=== PATIENT | female | born 1955 | race Caucasian/White ===

== ENCOUNTER 2018-04-25 11:56 | Emergency (ER) | payer BC ==
--- OUTSIDE RECORDS SUMMARY | 2018-04-25 12:08 | XMS REPORT | Continuity of Care Document ---
:1955 External Reference #:[id number] Author Name Ananya Zee O.D. Address [address] [place] [address] Care Team Providers Name Role Phone Naian Ross M.D. Primary Care Physician Unavailable Payers Type Date Identification Numbers Payment Provider Subscriber Policy Number: [id number] [facility] Mei Barone PayID: [id number] [address] [address] [place] [address] Advance Directives Description No Information Available Problems Date Description Provider Status Onset: Seasonal allergy Active Onset: Allergy to cat dander Active Onset: 04/12/2015 Vitreous degeneration Ananya Zee O.D. Active Onset: 04/12/2015 Presbyopia Ananya Zee O.D. Active Onset: 04/12/2015 Myopia Ananya Zee O.D. Active Onset: Chronic back pain Active Note: (fell while mowing lawn, landed on tail bone 09/03/2016) Onset: 04/12/2017 Regular astigmatism Ananya Zee O.D. Active Onset: 04/16/2018 Nuclear senile cataract Ananya Zee O.D. 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 Work Status Full-Time Employment ETOH Use Occasionally consumes alcohol Tobacco Use Start: Unknown Patient has never smoked Recreational Drug Use Denies Drug Use Smoking Status Reviewed: 04/16/18 Patient has never smoked Allergies, Adverse Reactions, Alerts Date Description Reaction Status Severity Comments 04/12/2017 Triethanolamine Lauryl Sulfate Active 04/12/2015 NKDA Inactive Medications Medication Date Status Form Strength Qnty SIG Indications Ordering Provider Ibuprofen Active Tablets 200mg 4-6 daily Ananya Zee, O.DCrystal Vitamin D-3 Active Capsules 3000Unit 1 tab Ananya Arnold every day Yayo, by mouth O.D. Montelukast Active Tablets 10mg Unknown Sodium 000 Fexofenadine Active 180mg daily Unknown HCL 000 Proair HFA Active Unknown 000 Retin-A Active Unknown 000 Multiple Active Tablets Unknown Vitamins 000 Steroid Shot Active (for Unknown 000 chronic back pain) Nasalcrom Active Aerosol 5.2mg/Act Unknown 000 Tretinoin Active Cream 0.05% Unknown (Emollient) 000 Multivitamin Active Tablets Unknown Adult 000 Alendronate Active Tablets 70mg Take 1 Unknown Sodium 000 Tablet By Mouth Once Weekly Take With A Full Glass Of Water DO Not Eat Or Lie Down For 30 Minutes Calcium Hx Tablets 500-125mg-U Unknown 500/Vitamin D 000 - nit 018 Tymlos Hx 80mcg daily Unknown 000 - 019 Immunizations Description No Information Available Vital Signs Description No Information Available Results Description No Information Available Procedures Date Code Description Status 04/12/2017 00648 Determination Of Refractive State Completed 04/12/2017 06435 Est Patient Comprehensive Exam Completed 04/12/2015 01314 Determination Of Refractive State Completed 04/12/2015 05352 New Patient Comprehensive Exam Completed 02/25/2011 57094 Determination Of Refractive State Completed 02/25/2011 95354 New Patient Comprehensive Exam Completed Encounters Description No Information Available Plan of Treatment 04/16/2018 - Ananya Zee O.D.H25.13 Age-related nuclear cataract, bilateralComments:You have been diagnosed with cataracts. If you are happy with your vision as it is now, then we willsee you at your next scheduled appointment. If you feel like your vision is getting worse before your scheduled appointment, please call Salome Will at [phone].Follow up:2 Year Follow Up You can expect to have your eyes dilated at your next visit. If Dr. Zee orders any additional testing, it may require extra time. We recommend that you bring sunglasses, as dilation drops often make you light sensitive until they wear off. We always recommend you bring someone to drive you home if you are uncomfortable driving with your eyes dilated. If you have any questions before your next visit, feel free to call our office at [phone].H52.4 PresbyopiaComments:You have presbyopia. This is when the lens in your eye loses the ability to change focus, and happens as we age. A pair of reading glasses will help you see up close.H52.13 Myopia, bilateralComments:You have Myopia, or near sightedness. I have given you a prescription for glasses.H52.223 Regular astigmatism, bilateralComments:Astigmatism is a common vision condition that happens when a person's cornea is not symmetrical. Dr. Zee has given you a prescription to correct for this.
--- NOTE | 2018-04-25 13:38 | ED ---
Upper Extremity Pain - HPI Summary HPI Summary: Patient presents with left wrist pain status post mechanical fall prior to arrival. She reports this was a foolish and she is having pain with flexion, extension and supination/pronation since. Denies numbness, tingling, weakness. He took 800 mg of ibuprofen this morning and has been icing which seems to help however pain is still present. Additionally, she takes tramadol for chronic sciatica issue and has been following with PT but has not been seen by orthopedics. She also has osteoporosis and is following with her PCP. Takes Fosamax. No other injuries as a result of this fall. - History of Current Complaint Chief Complaint: EDExtremityUpper Stated Complaint: LEFT WRIST INJURY Time Seen by Provider: 04/25/18 12:32 Hx Obtained From: Patient, Family/Barrel Painter - - Allergies/Home Medications Allergies/Adverse Reactions: Allergies Allergy/AdvReac Type Severity Reaction Status Date / Time trolamine salicylate Allergy Rash Verified 04/25/18 12:01 methocarbamol [From Robaxin] AdvReac Unknown Syncope Verified 04/25/18 12:01 PMH/Surg Hx/FS Hx/Imm Hx Previously Healthy: Yes Endocrine/Hematology History: Denies: Hx Anticoagulant Therapy, Hx Blood Disorders, Hx Diabetes Cardiovascular History: Denies: Hx Hypertension, Hx Pacemaker/ICD History: Denies: Hx Renal Disease Musculoskeletal History: Reports: Hx Arthritis, Hx Back Problems - sciatica - follows w/ PT, Hx Osteoporosis - fosamax w/ PCP Sensory History: Denies: Hx Hearing Aid Neurological History: Reports: Other Neuro Impairments/Disorders - PAIN CLINIC INJECTION Psychiatric History: Denies: Hx Panic Disorder - Cancer History Hx Chemotherapy: No Hx Radiation Therapy: No - Surgical History Surgery Procedure, Year, and Place: BENIGN - FIBROADINOMA - Rt BREAST Infectious Disease History: No Infectious Disease History: Denies: Traveled Outside the [place] in Last 30 Days - Social History Lives: With Family Alcohol Use: Rare Alcohol Amount: Wine Hx Substance Use: No Substance Use Type: Reports: None Hx Tobacco Use: No Smoking Status (MU): Never Smoked Tobacco Have You Smoked in the Last Year: No Review of Systems Constitutional: Negative Positive: no symptoms reported Positive: Arthralgia Skin: Negative Neurological: Negative Psychological: Normal All Other Systems Reviewed And Are Negative: Yes Physical Exam Triage Information Reviewed: Yes Vital Signs On Initial Exam: Initial Vitals Temp Pulse Resp BP Pulse Ox 97.4 F 76 16 147/101 100 04/25/18 11:57 04/25/18 11:57 04/25/18 11:57 04/25/18 11:57 04/25/18 11:57 Vital Signs Reviewed: Yes Appearance: Positive: Well-Appearing, No Pain Distress, Well-Nourished Skin: Positive: Warm, Skin Color Reflects Adequate Perfusion, Dry - skin is erythematous and cold from ice pack but well perfused - cap refill < 2 secs and radial pulse + 2 Head/Face: Positive: Normal Head/Face Inspection Eyes: Positive: EOMI ENT: Positive: Hearing grossly normal Respiratory/Lung Sounds: Positive: Breath Sounds Present Cardiovascular: Positive: Pulses are Symmetrical in both Upper and Lower Extremities Musculoskeletal: Positive: Strength/ROM Intact - elbow, shoulder, clavicle, neck are w/ FROM, NTTP, Pain @ - Lt wrist pain w/ flexion/extension/supination/ pronation; TTP over distal radius - no gross deformity Neurological: Positive: Normal, Sensory/Motor Intact, Alert, Oriented to Person Place, Time, CN Intact II-III Psychiatric: Positive: Normal Procedures - Splinting Left Upper Extremity Location: Lt UE Hand-Made Type: fiberglass Splint: sugar-tong Pre-Proc Neuro Vasc Exam: normal Post-Proc Neuro Vasc Exam: normal Diagnostics - Vital Signs Vital Signs Temp Pulse Resp BP Pulse Ox 04/25/18 11:57 97.4 F 76 16 147/101 100 - Laboratory Lab Statement: Any lab studies that have been ordered have been reviewed, and results considered in the medical decision making process. Course/Dx - Course Course Of Treatment: XR: non-displaced fx of the distal radius. Splint placed - pt tolerated well - Diagnoses Provider Diagnoses: Closed fracture of left distal radius Discharge - Sign-Out/Discharge Documenting (check all that apply): Patient Departure - Discharge Plan Condition: Stable Disposition: HOME Patient Education Materials: Wrist Fracture in Adults (ED), Splint Care (ED) Referrals: Amilcar Ruby MD [Medical Doctor] - Additional Instructions: REST, ICE, ELEVATE AND KEEP SPLINT CLEAN, DRY AND IN PLACE UNTIL SEEN BY ORTHOPEDICS. Call orthopedics Friday to schedule follow-up You may take ibuprofen alternating with acetaminophen as needed for pain *If you develop numbness, tingling, weakness, swelling or skin discoloration, loosen DENAE wrap and elevate arm for 20 minutes. If symptoms persist, return to ED - Billing Disposition and Condition Condition: STABLE Disposition: Home
[2018-04-25 14:01] VITALS: BP 138/75
== END 2018-04-25 13:59 | disposition home or self-care (01) ==
LOC: ED 11:56
DX: S52.502A Unspecified fracture of the lower end of left radius, initial encounter for closed fracture (principal); W19.XXXA Unspecified fall, initial encounter; Y92.9 Unspecified place or not applicable; M54.30 Sciatica, unspecified side; M81.0 Age-related osteoporosis without current pathological fracture
CPT/HCPCS: 29125; 99282